=== PATIENT | female | born 1950 | race Caucasian/White ===

== ENCOUNTER 2016-12-13 07:19 | Emergency (ER) | payer BC ==
[2016-12-13] MEDS ORDERED: Ketorolac INJ* 30 MG/ML 1 ML VIAL IV PUSH ONE (07:50)
[2016-12-13 07:54] LABS: Hematocrit 48 % (35-47); Hemoglobin 15.9 g/dl (12.0-16.0); Mean Corpuscular HGB Conc 33 g/dl (31-36); Mean Corpuscular Hemoglobin 30 pg (27-31); Mean Corpuscular Volume 89 fL (80-97); Mean Platelet Volume 10 um3 (7.4-10.4); Red Blood Count 5.37 10^6/ul (4.0-5.4); Red Cell Distribution Width 14 % (10.5-15); White Blood Count 8.1 10^3/ul (3.5-10.8)
--- NOTE | 2016-12-13 08:05 | RAD ---
INDICATION: Chest pain COMPARISON: August 24, 2016 TECHNIQUE: PA and lateral dual-energy views were obtained. FINDINGS: Bones/Soft Tissues: There are no acute bony findings. There is osteopenia with kyphoscoliosis Cardiomediastinal: The cardiomediastinal silhouette is normal. Lungs: There are no infiltrates. Pleura: There are no pleural effusions. Other: There are nipple shadows IMPRESSION: NO ACTIVE DISEASE.
[2016-12-13 08:09] LABS: BUN/Creatinine Ratio 23.8 (8-20); Calcium 9.8 mg/dL (8.6-10.3); EGFR African American 87.2 (>60); EGFR Non-African American 67.8 (>60); Globulin 3.1 g/dL (2-4); Magnesium 2.1 mg/dL (1.9-2.7); Potassium 3.9 mmol/L (3.5-5.0); Total Bilirubin 0.7 mg/dL (0.2-1.0); Total Protein 8.1 g/dL (6.4-8.9)
[2016-12-13 08:45] LABS: T4 5.84 g/dL (6.09-12.23)
[2016-12-13 08:46] LABS: TSH (Thyroid Stimulating Horm) 2.14 mcIU/mL (0.34-5.60)
--- NOTE | 2016-12-13 11:57 | ED ---
I, Oh,Soohsushma, scribed for Scotty Pal MD on 12/13/16 at 0750 . HPI Chest Pain - HPI Summary HPI Summary: This 66 y/o female presents to ED for left anterior chest pain since 0000 AM today. CP is described as "like contraction" with waxing and waning quality. Pt had just gotten in to bed at the time of onset. Pt reports similar episode, for which pt was evaluated and had benign cardiac workup on 08/24/2016. PMHx includes HLD, HTN, and hypothyroidism that are controlled with medications. Nonsmoker and nondrinker. FHx is positive for CVA and HTN to parents as well as VA to pt's brother. - History of Current Complaint Chief Complaint: EDChestPainROMI Time Seen by Provider: 12/13/16 07:34 Hx Obtained From: Patient, Medical Records Onset/Duration: Started Hours Ago, Still Present Timing: Constant - waxing and waning Pain Intensity: 3 Pain Scale Used: 0-10 Numeric Chest Pain Radiates: No Character: Dull/Aching Aggravating Factor(s): Nothing Alleviating Factor(s): Nothing Associated Signs and Symptoms: Positive: Chest Pain - Additional Pertinent History Primary Care Physician: [id number] - Allergy/Home Medications Allergies/Adverse Reactions: Allergies Allergy/AdvReac Type Severity Reaction Status Date / Time Ramipril Allergy Severe FACIAL Verified 12/13/16 07:22 SWELLING Home Medications: Home Medications Aspirin TAB* [Aspirin 325 MG TAB*] 2 tab PO .ONCE AT 0200 12/13/16 [History Confirmed 12/13/16] PMH/Surg Hx/FS Hx/Imm Hx Endocrine/Hematology History: Reports: Hx Thyroid Disease - hypo Denies: Hx Diabetes Cardiovascular History: Reports: Hx Angina, Hx Hypertension Denies: Hx Coronary Artery Disease, Hx Hypercholesterolemia, Hx Myocardial Infarction, Hx Pacemaker/ICD, Hx Valvular Heart Disease Respiratory History: Denies: Hx Asthma Musculoskeletal History: Reports: Hx Scoliosis Denies: Hx Osteoporosis Sensory History: Reports: Hx Contacts or Glasses Denies: Hx Hearing Aid Opthamlomology History: Reports: Hx Contacts or Glasses Psychiatric History: Denies: Hx Panic Disorder - Cancer History Hx Chemotherapy: No Hx Radiation Therapy: No - Surgical History Surgery Procedure, Year, and Place: T&A Hx Anesthesia Reactions: No - Immunization History Date of Tetanus Vaccine: up to date Date of Influenza Vaccine: 2016 Infectious Disease History: No Infectious Disease History: Denies: Traveled Outside the [place] in Last 30 Days - Family History Known Family History: Positive: Cardiac Disease, Hypertension, Other - stroke - Social History Alcohol Use: 4X/week Substance Use Type: Reports: None Smoking Status (MU): Never Smoked Tobacco Review of Systems Negative: Fever Positive: Chest Pain All Other Systems Reviewed And Are Negative: Yes Physical Exam - Summary Physical Exam Summary: VITAL SIGNS: Reviewed. GENERAL: Patient is a well developed and nourished female who is lying comfortable in the stretcher. Patient is not in any acute respiratory distress. HEAD AND FACE: No signs of trauma. No ecchymosis, hematomas or skull depressions. No sinus tenderness. EYES: PERRLA, EOMI x 2, No injected conjunctiva, no nystagmus. EARS: Hearing grossly intact. Ear canals and tympanic membranes are within normal limits. MOUTH: Oropharynx within normal limits. NECK: Supple, trachea is midline, no adenopathy, no JVD, no carotid bruit, no c- spine tenderness, neck with full ROM. CHEST: Symmetric, Positive tenderness at palpation in the left side of the chest LUNGS: Clear to auscultation bilaterally. No wheezing or crackles. CVS: Regular rate and rhythm, S1 and S2 present, no murmurs or gallops appreciated. ABDOMEN: Soft, non-tender. No signs of distention. No rebound no guarding, and no masses palpated. Bowel sounds are normal. EXTREMITIES: FROM in all major joints, no edema, no cyanosis or clubbing. NEURO: Alert and oriented x 3. No acute neurological deficits. Speech is normal and follows commands. SKIN: Dry and warm Triage Information Reviewed: Yes Vital Signs On Initial Exam: Initial Vitals Temp Pulse Resp BP Pulse Ox 98.1 F 73 16 153/78 100 12/13/16 07:23 12/13/16 07:23 12/13/16 07:23 12/13/16 07:23 12/13/16 07:23 Vital Signs Reviewed: Yes Diagnostics - Vital Signs Vital Signs Temp Pulse Resp BP Pulse Ox 12/13/16 07:33 69 100 12/13/16 07:31 99.3 F 70 16 166/70 100 12/13/16 07:23 98.1 F 73 16 153/78 100 - Laboratory Result Diagrams: 12/13/16 07:13 12/13/16 07:13 Lab Statement: Any lab studies that have been ordered have been reviewed, and results considered in the medical decision making process. - Radiology CXR Xray Interpretation: No Acute Changes Radiology Interpretation Completed By: Radiologist - EKG 0754 Cardiac Rate: NL EKG Rhythm: Sinus Rhythm EKG Interpretation: ST depression at V5 and V6. Re-Evaluation - Re-Evaluation First Eval Re-Evaluation Time: 10:27 Change: Improved Comment: MD in room to re-evaluate pt. CP improved after toradol. Chest Pain Course/Dx - Course Assessment/Plan: This 66 y/o female presents to ED for left anterior chest pain since 0000 AM today. CP is described as "like contraction" and waxing and waning. Pt had just gotten into bed at the time of onset. Pt reports similar episode last year in August, after which pt had benign cardiac workup. PMHx includes HLD, HTN, and hypothyroidism that are controlled with medications. Nonsmoker and nondrinker. FHx is positive for CVA and HTN to parents as well as VA to pt's brother. Blood test are found within normal limits except for Glucose 106, TSH 2.1 and T4 5.8. Troponin # 1: 0.00 and #2 0.00. CXR Impression: No active disease. In the ED course she was given Toradol since she reports pain as sharp and it is reproducible at palpation. After medications she is feeling better. I have nos suspicion for PE since patient is tachycardic and she is not hypoxic. Wells criteria is 0. Low possibility for ACS since patient CP resolved, 2 troponin negative and EKG shows no STEMI. She also had a full cardiac work up on September which patient reports it was negative. I discussed all the findings and test results with the patient. Patient was instructed to return to the emergency room immediately if any of the symptoms return or worsens. Plan of care was discussed with the patient and understands and agrees. All questions were answered at patient satisfaction. There were no further complaints or concerns. Lung exam before discharge: CTA B /L. Good air exchange. No wheezing or crackles heard. CVS: S1 and S2 present. No murmurs appreciated. Patient is alert and oriented x 3. Patient is hemodynamically stable. Patient will be discharged home with follow up PCP in the next 2-3 days - Chest Pain Differential Diagnosis/HQI/PQRI: Acute VA, ACS, Angina, CHF, Chest Wall, GI Disease, Lower Respiratory Infection, Pulmonary Embolism - Diagnoses Provider Diagnoses: Atypical chest pain Discharge - Discharge Plan Condition: Stable Disposition: HOME Patient Education Materials: Chest Pain (ED) Referrals: Radha Fenton MD [Primary Care Provider] - 2 Days The documentation as recorded by the Sancho pappas Soohyun accurately reflects the service I personally performed and the decisions made by Demarco barron Walter, MD.
[2016-12-13 12:46] VITALS: BP 115/66
== END 2016-12-13 12:44 | disposition home or self-care (01) ==
LOC: ED 07:19
DX: R07.9 Chest pain, unspecified (principal); I10 Essential (primary) hypertension; E78.5 Hyperlipidemia, unspecified; R07.89 Other chest pain; E03.9 Hypothyroidism, unspecified; Z82.49 Family history of ischemic heart disease and other diseases of the circulatory system
CPT/HCPCS: 36415; 71020; 80053; 82550; 82553; 83605; 83735; 83880; 84436; 84443; 84484; 85025; 85379; 85610; 93005; J1885

== ENCOUNTER 2017-03-18 15:55 | Emergency (ER) | payer BC ==
[2017-03-18] MEDS ORDERED: NS 0.9% 1000 ML* 1,000 ML IV ONE (16:16)
[2017-03-18] MEDS ORDERED: Dexamethasone IV* 4 MG/ML 1 ML (4 MG) IV SLOW PU ONE (16:16)
[2017-03-18] MEDS ORDERED: Famotidine IV* 10 MG/ML 2 ML (20 mg) IV SLOW PU ONE (16:18)
[2017-03-18] MEDS ORDERED: diPHENhydraMINE IV* 50 MG in NS 0.9% 50 ML* 50 ML IVPB ONE (16:18)
[2017-03-18 16:42] LABS: Hematocrit 42 % (35-47); Hemoglobin 13.7 g/dl (12.0-16.0); Mean Corpuscular HGB Conc 33 g/dl (31-36); Mean Corpuscular Hemoglobin 30 pg (27-31); Mean Corpuscular Volume 91 fL (80-97); Mean Platelet Volume 10 um3 (7.4-10.4); Red Blood Count 4.56 10^6/ul (4.0-5.4); Red Cell Distribution Width 14 % (10.5-15)
[2017-03-18 17:02] LABS: ALT 18 U/L (7-52); AST 22 U/L (13-39); Albumin 4.4 g/dL (3.2-5.2); Alkaline Phosphatase 63 U/L (34-104); Anion Gap 10 mmol/L (2-11); BUN/Creatinine Ratio 19.5 (8-20); Blood Urea Nitrogen 17 mg/dL (6-24); CO2 Carbon Dioxide 23 mmol/L (22-32); Calcium 9.5 mg/dL (8.6-10.3); Chloride 105 mmol/L (101-111); EGFR African American 83.8 (>60); EGFR Non-African American 65.1 (>60); Globulin 2.7 g/dL (2-4); Glucose 99 mg/dL (70-100); Potassium 3.9 mmol/L (3.5-5.0); Sodium 138 mmol/L (133-145); Total Protein 7.1 g/dL (6.4-8.9)
[2017-03-18 17:44] LABS: C Reactive Protein < 1.00 mg/L (< 5.00)
[2017-03-18 18:04] VITALS: BP 150/72
--- NOTE | 2017-03-19 09:09 | ED ---
Isma Madrid Alfonso, scribed for Scotty Pal MD on 03/18/17 at 1738 . Allergic Reaction/Systemic - HPI Summary HPI Summary: This patient is a 66 year old F presenting to [facility] accompanied by with a chief complaint of allergic reaction since 1015 this morning. This allergic reaction is possibly secondary to a pneumonia shot in her LUE. Pt rates the pain 4/10 in severity. Symptoms aggravated and alleviated by nothing. Pt reports tongue and lip feels thick, left arm swelling, left arm pain. Pt denies CP, palpitations, and SOB. PMHx of HTN and hypothyroidism. - History of Current Complaint Chief Complaint: EDAllergicReaction Time Seen by Provider: 03/18/17 16:11 Hx Obtained From: Patient Onset/Duration: Sudden Onset, Started hours ago - 1015 this morning, Still Present Severity Initially: Moderate Severity Currently: Moderate Pain Intensity: 4 Pain Scale Used: 0-10 Numeric Character: Swelling Aggravating Factor(s): Nothing Alleviating Factor(s): Nothing Associated Signs And Symptoms: Positive: Other: - Pt reports tongue and lip feels thick, left arm swelling, left arm pain. Pt denies CP, palpitations, and SOB. - Allergies/Home Medications Allergies/Adverse Reactions: Allergies Allergy/AdvReac Type Severity Reaction Status Date / Time Ramipril Allergy Severe FACIAL Verified 12/13/16 07:22 SWELLING PMH/Surg Hx/FS Hx/Imm Hx Endocrine/Hematology History: Reports: Hx Thyroid Disease - hypo Denies: Hx Diabetes Cardiovascular History: Reports: Hx Angina, Hx Hypertension Denies: Hx Coronary Artery Disease, Hx Hypercholesterolemia, Hx Myocardial Infarction, Hx Pacemaker/ICD, Hx Valvular Heart Disease Respiratory History: Denies: Hx Asthma Musculoskeletal History: Reports: Hx Scoliosis Denies: Hx Osteoporosis Sensory History: Reports: Hx Contacts or Glasses Denies: Hx Hearing Aid Opthamlomology History: Reports: Hx Contacts or Glasses Psychiatric History: Denies: Hx Panic Disorder - Cancer History Hx Chemotherapy: No Hx Radiation Therapy: No - Surgical History Surgery Procedure, Year, and Place: T&A Hx Anesthesia Reactions: No - Immunization History Date of Tetanus Vaccine: up to date Date of Influenza Vaccine: 2016 Infectious Disease History: Denies: Traveled Outside the [place] in Last 30 Days - Family History Known Family History: Positive: Cardiac Disease, Hypertension, Other - stroke - Social History Alcohol Use: Occasionally Alcohol Amount: few times a week Substance Use Type: Reports: None Hx Tobacco Use: No Smoking Status (MU): Never Smoked Tobacco Review of Systems Positive: Other - Positive "tongue and lip feels thick" Negative: Palpitations, Chest Pain Negative: Shortness Of Breath Positive: Other - Positive LUE swelling and pain. All Other Systems Reviewed And Are Negative: Yes Physical Exam - Summary Physical Exam Summary: VITAL SIGNS: Reviewed. GENERAL: Patient is a well-developed and nourished female who is lying comfortable in the stretcher. Patient is not in any acute respiratory distress. HEAD AND FACE: Normocephalic EYES: PERRLA, EOMI x 2. EARS: Hearing grossly intact. MOUTH: Oropharynx within normal limits. She does not have any lip swelling, tongue swelling, or trismus. NECK: Supple, trachea is midline, no adenopathy, no JVD, no carotid bruit. CHEST: Symmetric, no tenderness at palpation LUNGS: Clear to auscultation bilaterally. No wheezing or crackles. CVS: Regular rate and rhythm, S1 and S2 present, no murmurs or gallops appreciated. ABDOMEN: Soft, non-tender. Bowel sounds are normal. No abdominal abnormal pulsations. EXTREMITIES: Full ROM in all major joints, no edema, no cyanosis or clubbing. NEURO: Alert and oriented x 3. No acute neurological deficits. Speech is normal and follows commands. SKIN: Dry and warm Triage Information Reviewed: Yes Vital Signs On Initial Exam: Initial Vitals Temp Pulse Resp BP Pulse Ox 99.2 F 83 16 158/79 99 03/18/17 16:05 03/18/17 16:05 03/18/17 16:05 03/18/17 16:05 03/18/17 16:05 Vital Signs Reviewed: Yes - [place] Coma Scale Coma Scale Total: 15 Diagnostics - Vital Signs Vital Signs Temp Pulse Resp BP Pulse Ox 03/18/17 17:08 69 99 03/18/17 16:05 99.2 F 83 16 158/79 99 - Laboratory Lab Results: Lab Results 03/18/17 03/18/17 03/18/17 Range/Units 16:32 16:32 16:32 WBC 10.0 (3.5-10.8) 10^3/ul RBC 4.56 (4.0-5.4) 10^6/ul Hgb 13.7 (12.0-16.0) g/dl Hct 42 (35-47) % MCV 91 (80-97) fL MCH 30 (27-31) pg MCHC 33 (31-36) g/dl RDW 14 (10.5-15) % Plt Count 183 (150-450) 10^3/ul MPV 10 (7.4-10.4) um3 Neut % (Auto) 75.0 (38-83) % Lymph % (Auto) 15.9 L (25-47) % [place] % (Auto) 6.8 (1-9) % Eos % (Auto) 1.6 (0-6) % Baso % (Auto) 0.7 (0-2) % Absolute Neuts (auto) 7.5 (1.5-7.7) 10^3/ul Absolute Lymphs (auto) 1.6 (1.0-4.8) 10^3/ul Absolute Monos (auto) 0.7 (0-0.8) 10^3/ul Absolute Eos (auto) 0.2 (0-0.6) 10^3/ul Absolute Basos (auto) 0.1 (0-0.2) 10^3/ul Absolute Nucleated RBC 0 10^3/ul Nucleated RBC % 0 Sodium 138 (133-145) mmol/L Potassium 3.9 (3.5-5.0) mmol/L Chloride 105 (101-111) mmol/L Carbon Dioxide 23 (22-32) mmol/L Anion Gap 10 (2-11) mmol/L BUN 17 (6-24) mg/dL Creatinine 0.87 (0.51-0.95) mg/dL Est GFR ( Amer) 83.8 (>60) Est GFR (Non-Af Amer) 65.1 (>60) BUN/Creatinine Ratio 19.5 (8-20) Glucose 99 (70-100) mg/dL Lactic Acid 1.3 (0.5-2.0) mmol/L Calcium 9.5 (8.6-10.3) mg/dL Total Bilirubin 0.80 (0.2-1.0) mg/dL AST 22 (13-39) U/L ALT 18 (7-52) U/L Alkaline Phosphatase 63 (34-104) U/L C-Reactive Protein Pending Total Protein 7.1 (6.4-8.9) g/dL Albumin 4.4 (3.2-5.2) g/dL Globulin 2.7 (2-4) g/dL Albumin/Globulin Ratio 1.6 (1-3) Result Diagrams: 03/18/17 16:32 03/18/17 16:32 Lab Statement: Any lab studies that have been ordered have been reviewed, and results considered in the medical decision making process. Allergic Reaction Course/Dx - Course Course Of Treatment: This patient is a 66 year old F presenting to [facility] accompanied by with a chief complaint of allergic reaction since 1015 this morning. This allergic reaction is possibly secondary to a pneumonia shot in her LUE. Pt rates the pain 4/10 in severity. Symptoms aggravated and alleviated by nothing. Pt reports tongue and lip feels thick, left arm swelling, left arm pain. Pt denies CP, palpitations, and SOB. PMHx of HTN and hypothyroidism. Assessment/Plan: Test results WNL. In the ED course patient was given Benadryl, Pepcid, and Decadron. The symptoms subsided with this treatment. She was observed in the ED for approximately 3 hours and symptoms did not return. Therefore, she will be discharged home with PCP follow up. Her diagnosis is allergic reaction. Patient is hemodynamically stable and A&Ox3. Patient agrees to return to the ED if any of her symptoms return. I discussed all the findings and test results with the patient. Patient was instructed to return to the emergency room immediately if any of the symptoms return or worsens. Plan of care was discussed with the patient and understands and agrees. All questions were answered at patient satisfaction. There were no further complaints or concerns. Lung exam before discharge: CTA B/L. Good air exchange. No wheezing or crackles heard. CVS: S1 and S2 present. No murmurs appreciated. Patient is alert and oriented x 3. Patient is hemodynamically stable. Patient will be discharged home with follow up PCP in the next 2-3 days - Diagnoses Differential Diagnosis/HQI/PQRI: Positive: Anaphylaxis, Angioedema, Local Allergic Reaction, Urticaria Provider Diagnoses: Allergic reaction Discharge - Discharge Plan Condition: Stable Disposition: HOME Prescriptions: Famotidine TAB* [Pepcid 20 MG TAB*] 20 mg PO DAILY #10 tab diPHENhydraMINE PO* [Benadryl PO 25 MG TAB*] 25 mg PO TID PRN #30 tab PRN Reason: Allergy Symptoms predniSONE TAB* [Deltasone TAB*] 40 mg PO DAILY #8 tab Patient Education Materials: General Allergic Reaction (ED) Referrals: Radha Fenton MD [Primary Care Provider] - 2 Days The documentation as recorded by the Isma pappas Alfonso accurately reflects the service I personally performed and the decisions made by Demarco barron Walter, MD.
== END 2017-03-18 18:24 | disposition home or self-care (01) ==
LOC: ED 15:55
DX: T78.40XA Allergy, unspecified, initial encounter (principal); M79.602 Pain in left arm; R00.2 Palpitations; R06.02 Shortness of breath; X58.XXXA Exposure to other specified factors, initial encounter
CPT/HCPCS: 36415; 80053; 83605; 85025; 86140; 96374; 96375; 99282; J1100; J1200

== ENCOUNTER 2017-04-28 15:58 | Emergency (ER) | payer BC ==
--- NOTE | 2017-04-28 18:32 | UC ---
Ear Complaint HPI - HPI Summary HPI Summary: right ear and sore throat for 2 weeks--pasain down from ear into side of throat is also congested - History of Current Complaint Chief Complaint: UCEar Stated Complaint: EAR ACHE Time Seen by Provider: 04/28/17 18:24 Hx Obtained From: Patient ?: No Onset/Duration: Gradual Onset, Lasting Weeks - 2, Still Present Severity Initially: Mild Severity Currently: Mild Pain Intensity: 4 Pain Scale Used: 0-10 Numeric Aggravating Factors: Nothing Alleviating Factors: Nothing Related History: Seasonal Allergies - Allergies/Home Medications Allergies/Adverse Reactions: Allergies Allergy/AdvReac Type Severity Reaction Status Date / Time Ramipril Allergy Severe FACIAL Verified 04/28/17 18:21 SWELLING PMH/Surg Hx/FS Hx/Imm Hx Previously Healthy: No Endocrine History: Hypothyroidism Cardiovascular History: Hypertension - Surgical History Surgical History: Yes Surgery Procedure, Year, and Place: T&A - Family History Known Family History: Positive: Cardiac Disease, Hypertension, Other - stroke - Social History Occupation: Retired Lives: With Family Alcohol Use: Rare Alcohol Amount: few times a week Substance Use Type: None Smoking Status (MU): Never Smoked Tobacco Review of Systems Constitutional: Negative Skin: Negative Eyes: Negative ENT: Sore Throat - right side, Ear Ache - right side Respiratory: Negative Cardiovascular: Negative Gastrointestinal: Negative Genitourinary: Negative Motor: Negative Neurovascular: Negative Musculoskeletal: Negative Neurological: Negative Psychological: Negative All Other Systems Reviewed And Are Negative: Yes Physical Exam Triage Information Reviewed: Yes Appearance: Well-Appearing, No Pain Distress, Well-Nourished Vital Signs: Initial Vital Signs Temp 97.5 F 04/28/17 18:18 Pulse 65 04/28/17 18:18 Resp 18 04/28/17 18:18 BP 169/82 04/28/17 18:18 Pulse Ox 100 04/28/17 18:18 Vital Signs Reviewed: Yes Eye Exam: Normal Eyes: Positive: Conjunctiva Clear ENT Exam: Normal ENT: Positive: Normal ENT inspection, Hearing grossly normal, Pharynx normal, TMs normal. Negative: Nasal congestion, Nasal drainage, Trismus, Muffled/ hoarse voice Dental Exam: Normal Neck exam: Normal Neck: Positive: Supple, Nontender, No Lymphadenopathy Respiratory Exam: Normal Respiratory: Positive: Chest non-tender, Lungs clear, Normal breath sounds, No respiratory distress, No accessory muscle use Cardiovascular Exam: Normal Cardiovascular: Positive: RRR, No Murmur, Pulses Normal, Brisk Capillary Refill Musculoskeletal Exam: Normal Musculoskeletal: Positive: Strength Intact, ROM Intact, No Edema Neurological Exam: Normal Neurological: Positive: Alert, Muscle Tone Normal Psychological Exam: Normal Skin Exam: Normal Ear Complaint Course/Dx - Course Course Of Treatment: flonase, zyrtec with sudafed, follow blood pressure with pcp - Differential Dx/Diagnosis Differential Diagnosis/HQI/PQRI: Cerumen Impaction, Otitis Externa, Otitis Media , Pharyngitis, Trigeminal Nueralgia Provider Diagnoses: right eustation tube dysfunction, hypertension in poor control Discharge - Discharge Plan Condition: Stable Disposition: HOME Prescriptions: Cetirizine-Pseudoephedrine [Zyrtec-D Allergy/Congesti] 1 tab PO BID PRN #30 tab PRN Reason: Congestion Fluticasone NASAL SPRAY 50MCG* [Flonase NASAL SPRAY 50MCG*] 2 spray BOTH NARES DAILY #1 btl Patient Education Materials: Hypertension (ED), Serous Otitis Media (ED), How to Use Nasal Yancey (ED) Referrals: Radha Fenton MD [Primary Care Provider] - 2 Weeks
[2017-04-28 18:58] VITALS: BP 147/87
== END 2017-04-28 18:58 | disposition home or self-care (01) ==
LOC: UCEAST 15:58
DX: H69.91 Unspecified Eustachian tube disorder, right ear (principal); E03.9 Hypothyroidism, unspecified; I10 Essential (primary) hypertension
CPT/HCPCS: 99212; G0463

== ENCOUNTER 2018-08-27 15:47 | Emergency (ER) | payer MEDICARE, BC ==
--- NOTE | 2018-08-27 16:12 | ED ---
HPI Chest Pain - HPI Summary HPI Summary: This patient is a 68 year old female presenting to [facility] accompanied by her , Jackson, with a chief complaint of chest pain since 1000 today. Patient states that the pain initially originated in her left chest, under her arm and was described as a burning sensation. Currently, the pain has moved to her midsternum and is described as a pressure-like burning sensation. The pain has remained relatively constant. The pain is rated 4/10 in severity at its worst and is currently a 2/10. Symptoms aggravated by nothing. The patient treated the sx with 2 tabs of 325mg aspirin at 1200 with mild relief. Patient denies SOB , nausea, vomiting, diarrhea, diaphoresis, fever, pain in legs. Patient denies a PMHx of cardiac disease. Vital signs while in room: HR 81 bpm, BP 183/96. Home Medications Medication Instructions Recorded Confirmed Type Amlodipine/Atorvastatin [Caduet 10 1 tab PO DAILY 01/29/13 04/28/17 History mg-10 mg Tablet] Levothyroxine TAB* [Synthroid 25 50 mcg PO 0800 01/29/13 04/28/17 History MCG TAB*] Metoprolol Succinate [Metoprolol 100 mg PO DAILY 01/29/13 04/28/17 History Succinate ER] Cholecalciferol (Vitamin D3) 1,000 unit PO DAILY 08/24/16 04/28/17 History [Vitamin D3] Aspirin TAB* [Aspirin 325 MG TAB*] 2 tab PO .ONCE AT 0200 12/13/16 04/28/17 History Cetirizine-Pseudoephedrine 1 tab PO BID PRN #30 tab 04/28/17 Rx [Zyrtec-D Allergy/Congesti] Fluticasone NASAL SPRAY 50MCG* 2 spray BOTH NARES DAILY #1 btl 04/28/17 Rx [Flonase NASAL SPRAY 50MCG*] - History of Current Complaint Chief Complaint: EDChestPainROMI Time Seen by Provider: 08/27/18 15:48 Hx Obtained From: Patient Onset/Duration: Started Hours Ago, Still Present Time of Onset: 10:00 Timing: Constant Initial Severity: Moderate Current Severity: Mild Pain Intensity: 2 Pain Scale Used: 0-10 Numeric Chest Pain Location: Mid Sternal, Left Lateral Chest Pain Radiates: No Character: Burning, Pressure/Squeezing Aggravating Factor(s): Nothing Alleviating Factor(s): Medication - aspirin Associated Signs and Symptoms: Positive: Negative - SOB, nausea, vomiting, diarrhea, diaphoresis, fever, pain in legs.. Negative: Shortness of Breath, Fever, Nausea, Calf Pain/Swelling - Additional Pertinent History Primary Care Physician: MARCELO - Allergy/Home Medications Allergies/Adverse Reactions: Allergies Allergy/AdvReac Type Severity Reaction Status Date / Time ramipril Allergy Swelling Verified 08/27/18 15:49 PMH/Surg Hx/FS Hx/Imm Hx Previously Healthy: No Endocrine/Hematology History: Reports: Hx Thyroid Disease - hypo Denies: Hx Diabetes Cardiovascular History: Reports: Hx Hypercholesterolemia, Hx Hypertension Denies: Hx Coronary Artery Disease, Hx Myocardial Infarction, Hx Pacemaker/ ICD, Hx Valvular Heart Disease Respiratory History: Denies: Hx Asthma GI History: Denies: Hx Ulcer Musculoskeletal History: Reports: Hx Scoliosis Denies: Hx Osteoporosis Sensory History: Reports: Hx Contacts or Glasses Denies: Hx Hearing Aid Opthamlomology History: Reports: Hx Contacts or Glasses Psychiatric History: Denies: Hx Panic Disorder - Cancer History Hx Chemotherapy: No Hx Radiation Therapy: No - Surgical History Surgery Procedure, Year, and Place: T&A Hx Anesthesia Reactions: No - Immunization History Date of Tetanus Vaccine: up to date Date of Influenza Vaccine: 2015 Infectious Disease History: No Infectious Disease History: Denies: Hx Clostridium Difficile, Hx Hepatitis, Hx Human Immunodeficiency Virus (HIV), Hx of Known/Suspected MRSA, Hx Shingles, Hx Tuberculosis, Hx Known/ Suspected VRE, Hx Known/Suspected VRSA, History Other Infectious Disease, Traveled Outside the [place] in Last 30 Days - Family History Known Family History: Positive: Cardiac Disease, Hypertension, Diabetes, Other - stroke - Social History Occupation: Retired Lives: With Family Alcohol Use: Rare Alcohol Amount: few times a week Hx Substance Use: No Substance Use Type: Reports: None Hx Tobacco Use: No Smoking Status (MU): Never Smoked Tobacco Review of Systems Negative: Fever, Skin Diaphoresis Positive: Chest Pain Negative: Shortness Of Breath Negative: Vomiting, Diarrhea, Nausea Positive: no symptoms reported Musculoskeletal: Negative - leg pain Skin: Negative Neurological: Negative Psychological: Normal All Other Systems Reviewed And Are Negative: Yes Physical Exam - Summary Physical Exam Summary: Appearance: Well-appearing, minimal pain distress, well-nourished Skin: Warm, color reflects adequate perfusion, dry Head: Normal Head/Face inspection, atraumatic Eyes: Conjunctiva clear ENT: Normal inspection Neck: Supple, no nodes, no JVD Respiratory: Lungs clear, normal breath sounds, no respiratory distress Cardio: RRR, No murmur, pulses normal, brisk capillary refill Abdomen: Soft, nontender Bowel sounds: Present Musculoskeletal: Strength Intact/ROM intact, no calf tenderness, no edema. Psychological: Normal Neuro: Alert, muscle tone normal, no focal deficit Triage Information Reviewed: Yes Vital Signs On Initial Exam: Initial Vitals Temp Pulse Resp BP Pulse Ox 99 F 76 16 168/84 97 08/27/18 15:50 08/27/18 15:50 08/27/18 15:50 08/27/18 15:50 08/27/18 15:50 Vital Signs Reviewed: Yes Diagnostics - Vital Signs Vital Signs Temp Pulse Resp BP Pulse Ox 08/27/18 15:50 99 F 76 16 168/84 97 - Laboratory Result Diagrams: 08/27/18 16:06 08/27/18 16:06 Lab Statement: Any lab studies that have been ordered have been reviewed, and results considered in the medical decision making process. - Radiology CXR Radiology Interpretation Completed By: Radiologist Summary of Radiographic Findings: CXR reveals, per radiologist, IMPRESSION: NO ACTIVE CARDIOPULMONARY DISEASE IS NOTED. ED physician has reviewed this radiology report. - CT CT Chest/Thorax CT Interpretation Completed By: Radiologist Summary of CT Findings: CT Chest/Thorax reveals, per radiologist, IMPRESSION: No evidence of pulmonary emboli or aortic dissection is identified. ED physician has reviewed this radiology report. - EKG 1554 Cardiac Rate: NL EKG Rhythm: Sinus Rhythm - [address] Segment: Non-Specific Ectopy: None EKG Comparison: No Significant Change - since last EKG at 12/13/16 Summary of EKG Findings: An EKG, taken 1554, reveals NSR (73 BPM), normal YARIEL CT, normal QTc, normal axis, no acute changes. Re-Evaluation - Re-Evaluation First Eval Re-Evaluation Time: 16:42 Change: Improved Comment: Vital signs while in room: HR 59 bpm, BP 165/82. Chest pain is less, but still present. Discussed initial results. Discussed will treat HTN with amlodidpine, and will do CTA. Pt and Jackson agree. Second Eval Re-Evaluation Time: 18:50 Change: Unchanged Comment: Patient states her chest discomfort is down to a 2. The chest discomfort does not radiate. It's mid sternal. It is somewhat reproducible on palpation. Patient states she did take 1 [id number] omeprazole today with some relief. States she does not take omeprazole daily. Patient is agreeable to try Toradol and pantoprazole for pain relief, and she will await her second troponin. Her remains with her. Third Eval Re-Evaluation Time: 20:00 Change: Improved Comment: Vital signs while in room: BP 143/80. Chest pain is relieved. Discussed results. Pt and agree with discharge. Chest Pain Course/Dx - Course Assessment/Plan: This patient is a 68 year old female presenting to [facility] accompanied by her , Jackson, with a chief complaint of chest pain since 1000 today. Patient took 2 tabs of 325mg aspirin at 1200 with some relief. Because pt had already taken aspirin, no further aspirin was given. An EKG, taken 1554, reveals NSR (73 BPM), normal YARIEL CT, normal QTc, normal axis, no acute changes. CXR reveals, per radiologist, IMPRESSION: NO ACTIVE CARDIOPULMONARY DISEASE IS NOTED. ED physician has reviewed this radiology report. CTA Chest/Thorax done for chest pain and mildly elevated d-dimer, reveals, per radiologist, IMPRESSION: No evidence of pulmonary emboli or aortic dissection is identified. ED physician has reviewed this radiology report. Bloodwork obtained showing mildly elevated d-dimer without PE or aortic abnormality, two troponins 3 hrs apart of zero, and no other concerning results. Urinalysis obtained. In the ED course the patient was given Amlodipine 5mg PO, Toradol 30mg IV, Protonix 40mg IV, NS 0.9% IV bolus. Patient will be discharged with a dx of chest pain, HTN in poor cotnrol. Patient is advised to follow up with PCP in 2 days. The patient is agreeable with this plan. - Chest Pain Differential Diagnosis/HQI/PQRI: Acute PR, ACS, Angina, Aortic Aneurysm, CHF, GI Disease, Lower Respiratory Infection, Pulmonary Edema, Pulmonary Embolism - Diagnoses Provider Diagnoses: Chest pain, Hypertension, poor control Discharge - Sign-Out/Discharge Documenting (check all that apply): Patient Departure - home - Discharge Plan Condition: Stable Disposition: HOME Patient Education Materials: Chest Pain (ED) Referrals: Radha Fenton MD [Primary Care Provider] - 2 Days Additional Instructions: We gave you amlodipine 5mg orally at 5:00pm for your elevated BP 173/89 and the BP decreased accordingly as low as 134/82. You had a minimally elevated d dimer lab, which is a nonspecific marker for inflammation and can indicate a blood clot in the lung, and the CT Angiogram showed no abnormalities (no blood clot, or pulmonary embolus, or problem with your aorta), so there is no further concern for that elevated number. You had two troponin levels 3 hrs apart that were zero, with an EKG that showed no ischemia or sign or a heart attack, so there is no concern that your discomfort today was a heart attack. You were treated with toradol (ketorolac) 30mg IV and pantoprazole (proton pump inhibitor , similar to omeprazole) 40mg IV with relief of most of your symptoms. You may continue your usual medications, including the omeprazole. You should keep your appointment with Dr. Fenton in September, and see her sooner if needed. Return to the ER if any new or worsening symptoms. - Billing Disposition and Condition Condition: STABLE Disposition: Home - Attestation Statements Document Initiated by Rosibel: Yes Documenting Noemiibe: Viviana Galvan Provider For Whom Rosibel is Documenting (Include Credential): Kellie Ardon MD Scribe Attestation: Viviana Madrid, scribed for Kellie Ardon MD on 08/30/18 at 2033. Scribe Documentation Reviewed: Yes Provider Attestation: The documentation as recorded by the Viviana pappas accurately reflects the service I personally performed and the decisions made by , Kellie Ardon MD Status of Scribrubin Document: Viewed
[2018-08-27 16:20] LABS: ABS Basophils 0 10^3/ul (0-0.2); ABS Eosinophils 0.2 10^3/ul (0-0.6); ABS Lymphocytes 2.1 10^3/ul (1.0-4.8); ABS Monocytes 0.5 10^3/ul (0-0.8); ABS Neutrophils 4.4 10^3/ul (1.5-7.7); ABS Nucleated RBC 0 10^3/ul; Eosinophil % 2.7 %; Hematocrit 45 % (35-47); Hemoglobin 15.3 g/dl (12.0-16.0); Lymphocyte % 28.5 %; Mean Corpuscular HGB Conc 34 g/dl (31-36); Mean Corpuscular Hemoglobin 31 pg (27-31); Mean Corpuscular Volume 90 fL (80-97); Mean Platelet Volume 9.1 fL (7.4-10.4); Nucleated Red Blood Cells % 0.1; Platelet Count 219 10^3/ul (150-450); Red Blood Count 4.97 10^6/ul (4.00-5.40); Red Cell Distribution Width 14 % (10.5-15); White Blood Count 7.2 10^3/ul (3.5-10.8)
[2018-08-27 16:37] LABS: Albumin 4.7 g/dL (3.2-5.2); Albumin/Globulin Ratio 1.6 (1-3); BUN/Creatinine Ratio 18.1 (8-20); Calcium 9.9 mg/dL (8.6-10.3); EGFR Non-African American 68.4 (>60); Globulin 2.9 g/dL (2-4); Magnesium 2.1 mg/dL (1.9-2.7); Potassium 3.7 mmol/L (3.5-5.0); Total Bilirubin 0.7 mg/dL (0.2-1.0); Total Protein 7.6 g/dL (6.4-8.9)
[2018-08-27 16:38] LABS: INR 0.82 (0.77-1.02)
[2018-08-27] MEDS ORDERED: amLODIPine TAB* 5 MG PO ONE (16:49)
[2018-08-27] MEDS ORDERED: NS 0.9% 1000 ML* 1,000 ML IV ONE (16:49)
[2018-08-27] MEDS ORDERED: Iohexol 350* (CONTRAST) 500 ML MDV IV ONE (16:57)
[2018-08-27 17:26] LABS: Urine Appearance Clear; Urine Bilirubin Negative (Negative); Urine Blood Negative (Negative); Urine Color Straw; Urine Glucose Negative (Negative); Urine Ketones Negative (Negative); Urine Nitrite Negative (Negative); Urine Protein Negative (Negative); Urine Urobilinogen Negative (Negative)
[2018-08-27 17:44] LABS: TSH (Thyroid Stimulating Horm) 1.75 mcIU/mL (0.34-5.60)
[2018-08-27] MEDS ORDERED: Ketorolac INJ* 30 MG/ML 1 ML VIAL IV PUSH ONE (18:55)
[2018-08-27] MEDS ORDERED: Pantoprazole IV* 40 MG IV ONE (18:57)
[2018-08-27 21:08] VITALS: BP 135/74
== END 2018-08-27 21:07 | disposition home or self-care (01) ==
LOC: ED 15:47
DX: R07.9 Chest pain, unspecified (principal); I10 Essential (primary) hypertension; Z79.82 Long term (current) use of aspirin
CPT/HCPCS: 36415; 71045; 71275; 80053; 81003; 82550; 82553; 83605; 83735; 84436; 84443; 84484; 85025; 85379; 85610; 85730; 93005; 96374; 96375; 99282; A9270-GY; J1885; Q9967

== ENCOUNTER → 2019-08-09 08:29 | Day surgery (SDC) | payer MEDICARE, OTHER ==
[~2019-08-09 08:29] MED LIST: Acetaminophen TAB* 325 MG PO PRN; Buffered Lidocaine 1% SYRIN* 1 ML/SYRINGE INTRADERM ONE; Cyclopentolate 1% OPTH.SOL* 2 ML BTL ONE; Ketorolac 0.5% OPHTH (NF) 0.5 % 5 ML BTL ONE; Lidocaine 1% MPF ** 5 ML VIAL ONE; Lidocaine 2% w/ EPI 1:200,000* 20 ML SDV VIAL ONE; Midazolam* 1 MG/ML 2 ML VIAL (2 MG) ONE; Neomycin/Polymy/Dex OPTH.SUSP* MAXITROL 0.1% 5 ML ONE; Phenylephrine OPHTH SOL 2.5%* 2 ML ONE; Povidone Iodine 5% OPTH* 30 ML BTL ONE; Proparacaine 0.5% OPHTH.SOL* 15 ML BTL ONE; acetaZOLAMIDE TAB* 250 MG ONE
[2019-08-09 11:03] VITALS: BP 123/69
--- NOTE | 2019-08-09 12:47 | OP ---
OPERATIVE NOTE: DATE OF OPERATION: 08/09/19 DATE OF : 50 SURGEON: Adrian Dinh M.D. PREOPERATIVE DIAGNOSIS: Cataract and glaucoma, right eye. POSTOPERATIVE DIAGNOSIS: Cataract and glaucoma, right eye. OPERATIVE PROCEDURE: Extracapsular cataract extraction with intraocular lens implant and iStent, rig ht eye. PROCEDURE: The patient was brought to the operating room after being given 1/2% Alcaine with epineph rine drops in the preoperative area. The eye was prepped and draped in the usual sterile fashion. S terile drape and eyelid speculum were placed. Again, topical 1/2% Alcaine with epinephrine was given . A paracentesis incision was made at the 9 o'clock position with the No.75 blade. Clear cornea inc ision 2.2 x 2.2-mm was created at the 12 o'clock position starting at the anterior limbus using the 2 .2-mm keratome. The anterior chamber was irrigated with 0.4 mL of 1% non-preservative intracameral l idocaine and filled with DisCoVisc. A capsulorrhexis was completed using the cystotome and the Utrat a forceps. Hydrodissection was performed with balanced salt solution. The lens nucleus was removed w ith the Phacoemulsification handpiece without incident. Cortex was removed with the irrigation-aspir ation handpiece. The capsular bag was re-inflated using DisCoVisc and an [id number] 16.5 implant was ins erted with the shooter followed by an iStent inject inserted with its shooter at the 2 o'clock and 4 o'clock positions. The irrigation-aspiration handpiece was used to remove all residual DisCoVisc. T he eye was refilled with balanced salt solution and the wound checked and found to be watertight. To pical Maxitrol drops were given. [id number]/[facility] #: [id number]
== END | disposition home or self-care (01) ==
LOC: OREAST 08:29
PROVIDERS: ATTEND Specialist
DX: H25.811 Combined forms of age-related cataract, right eye (principal); H40.1131 Primary open-angle glaucoma, bilateral, mild stage; I10 Essential (primary) hypertension; E78.5 Hyperlipidemia, unspecified; E03.9 Hypothyroidism, unspecified; K21.9 Gastro-esophageal reflux disease without esophagitis; F41.9 Anxiety disorder, unspecified
CPT/HCPCS: A9270-GY; C1783; J2250; V2632

== ENCOUNTER 2019-08-16 09:40 | Day surgery (SDC) | payer MEDICARE, OTHER ==
[~2019-08-16 09:40] MED LIST changes: -Acetaminophen TAB* 325 MG PO PRN; -Cyclopentolate 1% OPTH.SOL* 2 ML BTL ONE; -Ketorolac 0.5% OPHTH (NF) 0.5 % 5 ML BTL ONE; -Lidocaine 1% MPF ** 5 ML VIAL ONE; -Lidocaine 2% w/ EPI 1:200,000* 20 ML SDV VIAL ONE; -Midazolam* 1 MG/ML 2 ML VIAL (2 MG) ONE; -Neomycin/Polymy/Dex OPTH.SUSP* MAXITROL 0.1% 5 ML ONE; -Phenylephrine OPHTH SOL 2.5%* 2 ML ONE; -Povidone Iodine 5% OPTH* 30 ML BTL ONE; -Proparacaine 0.5% OPHTH.SOL* 15 ML BTL ONE; -acetaZOLAMIDE TAB* 250 MG ONE
[2019-08-16] MEDS ORDERED: Lidocaine 2% w/ EPI 1:200,000* 20 ML SDV VIAL ONE (09:44)
[2019-08-16] MEDS ORDERED: Neomycin/Polymy/Dex OPTH.SUSP* MAXITROL 0.1% 5 ML ONE (09:44)
[2019-08-16] MEDS ORDERED: Proparacaine 0.5% OPHTH.SOL* 15 ML BTL ONE (09:44)
[2019-08-16] MEDS ORDERED: Cyclopentolate 1% OPTH.SOL* 2 ML BTL ONE (09:44)
[2019-08-16] MEDS ORDERED: Lidocaine 1% MPF ** 5 ML VIAL ONE (09:44)
[2019-08-16] MEDS ORDERED: Phenylephrine OPHTH SOL 2.5%* 2 ML ONE (09:44)
[2019-08-16] MEDS ORDERED: Ketorolac 0.5% OPHTH (NF) 0.5 % 5 ML BTL ONE (09:44)
[2019-08-16] MEDS ORDERED: acetaZOLAMIDE TAB* 250 MG ONE (09:44)
[2019-08-16] MEDS ORDERED: Povidone Iodine 5% OPTH* 30 ML BTL ONE (09:44)
[2019-08-16] MEDS ORDERED: Midazolam* 1 MG/ML 2 ML VIAL (2 MG) ONE ×2 (11:40→12:25)
[2019-08-16 13:05] VITALS: BP 135/71
--- NOTE | 2019-08-16 18:20 | OP ---
DATE OF OPERATION: 08/16/19 - [facility] DATE OF : 50 SURGEON: Adrian Dinh M.D. PREOPERATIVE DIAGNOSIS: Cataract and glaucoma, left eye. POSTOPERATIVE DIAGNOSIS: Cataract and glaucoma, left eye. OPERATIVE PROCEDURE: Extracapsular cataract extraction with intraocular lens implant and iStent, left eye. DESCRIPTION OF PROCEDURE: The patient was brought to the operating room after being given 1/2% Alcaine with epinephrine drops in the preoperative area. The eye was prepped and draped in the usual sterile fashion. Sterile drape and eyelid speculum were placed. Again, topical 1/2% Alcaine with epinephrine was given. A paracentesis incision was made at the 3 o'clock position with the No.75 blade. Clear cornea incision 2.2 x 2.2-mm was created at the 6 o'clock position starting at the anterior limbus using the 2.2-mm keratome. The anterior chamber was irrigated with 0.4 mL of 1% non-preservative intracameral lidocaine and filled with DisCoVisc. A capsulorrhexis was completed using the cystotome and the Utrata forceps. Hydrodissection was performed with balanced salt solution. The lens nucleus was removed with the Phacoemulsification handpiece without incident. Cortex was removed with the irrigation-aspiration handpiece. The capsular bag was re-inflated using DisCoVisc and an [id number] 16 implant was inserted with the shooter followed by an iStent inject inserted with its shooter at the 8 o'clock and 10 o'clock positions. The irrigation- aspiration handpiece was used to remove all residual DisCoVisc. The eye was refilled with balanced salt solution and the wound checked and found to be watertight. Topical Maxitrol drops were given. [id number]/[facility] #: [id number] [facility]Live
== END 2019-08-16 12:55 | disposition home or self-care (01) ==
LOC: OREAST 09:40
PROVIDERS: ATTEND Specialist
DX: H25.812 Combined forms of age-related cataract, left eye (principal); H40.1121 Primary open-angle glaucoma, left eye, mild stage; E03.9 Hypothyroidism, unspecified; I10 Essential (primary) hypertension; E78.5 Hyperlipidemia, unspecified; K21.9 Gastro-esophageal reflux disease without esophagitis
CPT/HCPCS: A9270-GY; C1783; J2250; V2632